=== PATIENT | female | born 1975 | race African-American/Black ===

== ENCOUNTER 2018-05-26 15:44 | Emergency (ER) | payer MEDICAID, OTHER ==
[~2018-05-26] VITALS: Ht 170.2 cm; Wt 73.5 kg
[~2018-05-26 15:44] MED LIST: PROP10TA68 PO
--- NOTE | 2018-05-26 16:23 | NUR ---
PT BIB SELF C/O SACRAL AREA ABSCESS X 2 WEEKS, PT IS AAOX4, NOT IN RESPIRATORY DISTRESS, V/S STABLE, KEPT RESTED AND COMFORTABLE.
--- NOTE | 2018-05-26 17:43 | NUR ---
RAN PRADO AT BEDSIDE FOR EVAL.
[2018-05-26] MEDS ORDERED: LIDOCAINE 1%-EPI 1:100,000 20 ML VIAL ONE (18:05)
--- NOTE | 2018-05-26 18:20 | NUR ---
IV LINE INSERTED, LABS DRAWNED, URINE COLLECTED AND SENT TO LAB.
[2018-05-26 18:26] LABS: APPEARANCE,URINE Clear (CLEAR); BILIRUBIN,URINE SMALL (NEGATIVE); BLOOD, URINE Negative Ery/uL (NEGATIVE); COLOR,URINE Yellow (YELLOW); KETONES,URINE Trace (NEGATIVE); LEUKOCYTE ESTERASE ,URINE Small (NEGATIVE); NITRITE, URINE Negative (NEGATIVE); PROTEIN,URINE Trace mg/dl (NEGATIVE); UGLUCOSE Negative (NEGATIVE); UROBILINOGEN,URINE 0.2 EU/dL (0.2)
[2018-05-26 18:32] LABS: BASOPHILS % (AUTO) 0.8 % (0.0-2.0); EOSINOPHILS % (AUTO) 2.2 % (0.0-6.0); HEMATOCRIT 41 % (33-45); HEMOGLOBIN 13.8 g/dL (11.5-14.8); LYMPHOCYTES # (AUTO) 2.1 /CMM (0.8-4.8); LYMPHOCYTES % (AUTO) 37.4 % (20.0-44.0); MEAN CORPUSCULAR HGB CONC 34 g/dl (31.0-36.0); MEAN CORPUSCULAR VOLUME 94 fL (82-100); MONOCYTES # (AUTO) 0.4 /CMM (0.1-1.30); MONOCYTES % (AUTO) 8.1 % (2.0-12.0); NEUTROPHILS # (AUTO) 2.8 /CMM (1.8-8.9); NEUTROPHILS % (AUTO) 51.5 % (43.0-81.0); PLATELET COUNT (AUTO) 332 /CMM (150-450); RED BLOOD CELL COUNT(AUTO) 4.31 MIL/uL (4.0-5.2); WHITE BLOOD COUNT (AUTO) 5.5 K/uL (4.3-11.0)
[2018-05-26 19:04] LABS: CALCIUM, SERUM 9.4 mg/dL (8.5-10.1); CREATININE 0.9 mg/dL (0.6-1.3); POTASSIUM 4.3 mmol/L (3.5-5.1)
[2018-05-26 19:09] LABS: ALBUMIN 3.9 g/dL (3.4-5.0); BILIRUBIN,TOTAL 0.2 mg/dL (0.2-1.0); TOTAL PROTEIN, SERUM 8.2 g/dL (6.4-8.2)
--- NOTE | 2018-05-26 19:24 | NUR ---
REPORT GIVEN TO JAD SYKES FOR MAGALI.
--- NOTE | 2018-05-26 19:25 | NUR ---
RECEIVED REPORT FROM VELMA RN FOR MAGALI. PT RESTING COMFORTABLY IN BED. VITAL SIGNS STABLE. WILL CONTINUE TO MONITOR
[2018-05-26 19:27] LABS: BACTERIA,URINE Few /HPF (None Seen); SQUAMOUS EPITHELIAL CELL,UR Few /HPF (None Seen)
[2018-05-26] MEDS ORDERED: ASPIRIN 325 MG TABLET ONE (19:27)
[2018-05-26] MEDS ORDERED: ASPIRIN 81 MG TAB.CHEW PO ONE (19:30)
[2018-05-26] MEDS ORDERED: IV NS 0.9% 1,000 ML BAG IV ONE (19:30)
--- NOTE | 2018-05-26 21:15 | NUR ---
PT RESTING COMFORTABLY IN BED. VITAL SIGNS STABLE. WILL CONTINUE TO MONITOR
--- NOTE | 2018-05-26 23:45 | NUR ---
SEALING MACHINE OPERATOR AT BEDSIDE FOR BLOOD DRAW
[2018-05-27 00:44] VITALS: BP 110/70
--- NOTE | 2018-05-27 01:10 | NUR ---
PT WAS PROVIDED WITH WARM MEAL, PT WEARING APPROPRIATE CLOTHING AT DISCHARGE. PT PROVIDED WITH TAP CARD FOR TRANSPORATION. INFORMED PT NEARBY SHELTERS AND PROVIDED WITH LIST OF RESOURCES. PT VERBALIZED UNDERSTANDING.
--- NOTE | 2018-05-27 01:13 | NUR ---
Patient given written and verbal discharge instructions. Patient verbalizes understanding of instructions. Patient is ambulatory with steady gait. Refuses offer of care home placement. Patient given list of available shelters in surrounding area. IV removed. Catheter intact and site benign. Pressure and 4x4 applied to site. No bleeding noted.
== END 2018-05-27 01:14 | disposition home or self-care (01) ==
LOC: ER 15:55
DX: L05.01 Pilonidal cyst with abscess (principal); R07.89 Other chest pain; J45.909 Unspecified asthma, uncomplicated; F41.9 Anxiety disorder, unspecified; E05.90 Thyrotoxicosis, unspecified without thyrotoxic crisis or storm; F31.9 Bipolar disorder, unspecified; Z88.8 Allergy status to other drugs, medicaments and biological substances; Z79.899 Other long term (current) drug therapy
CPT/HCPCS: 10080; 36415; 71045; 80048; 80076; 81001; 83690; 84484 ×2; 84703; 85025; 87086; 93005 ×2; 99284; A4606; A6402 ×2; A6407; J3490; J7030; 81000-TC

== ENCOUNTER 2018-05-29 04:01 | Emergency (ER) | payer OTHER ==
[~2018-05-29] VITALS: Ht 170.2 cm; Wt 72.6 kg
[2018-05-29 04:11] VITALS: BP 134/88
== END 2018-05-29 04:46 | disposition home or self-care (01) ==
LOC: ER 04:01
DX: Z48.01 Encounter for change or removal of surgical wound dressing (principal); J45.909 Unspecified asthma, uncomplicated; F31.9 Bipolar disorder, unspecified; F41.9 Anxiety disorder, unspecified; E05.90 Thyrotoxicosis, unspecified without thyrotoxic crisis or storm; Z88.8 Allergy status to other drugs, medicaments and biological substances
CPT/HCPCS: 99281; A4606